=== PATIENT | male | born 1980 | race Caucasian/White ===

== ENCOUNTER 2016-12-01 11:00 | Emergency (ER) | payer BC ==
[2016-12-01 14:25] VITALS: BP 149/86
--- NOTE | 2016-12-01 14:36 | UC ---
Lower Extremity/Ankle HPI - HPI Summary HPI Summary: 36 yo male with pain/swelling redness of right foot x 4 days onset after skating no known trauma walking with limp no hx gout - History of Current Complaint Chief Complaint: UCLowerExtremity Stated Complaint: RIGHT FOOT PAIN Time Seen by Provider: 12/01/16 14:17 Hx Obtained From: Patient Onset/Duration: Gradual Onset, Lasting Days Severity Initially: Mild Severity Currently: Moderate Pain Intensity: 6 Pain Scale Used: 0-10 Numeric Aggravating Factor(s): Standing, Ambulation Alleviating Factor(s): Rest, Elevation Able to Bear Weight: Yes - Allergies/Home Medications Allergies/Adverse Reactions: Allergies Allergy/AdvReac Type Severity Reaction Status Date / Time avoids NSAIDs AdvReac Bleeding Uncoded 12/01/16 14:27 PMH/Surg Hx/FS Hx/Imm Hx Previously Healthy: Yes GI/ History Of: Reports: Ulcer - Surgical History Surgical History: Yes Surgery Procedure, Year, and Place: hernia repair 1991 - Family History Known Family History: Positive: Hypertension, Other - no Fhx of gout - Social History Alcohol Use: Daily Alcohol Amount: 2-4 beers daily Substance Use Type: None Smoking Status (MU): Never Smoked Tobacco Type: Smokeless Tobacco Household Exposure Type: Cigarettes - Immunization History Most Recent Influenza Vaccination: no Review of Systems Constitutional: Negative Skin: Negative Eyes: Negative ENT: Negative Respiratory: Negative Cardiovascular: Negative Gastrointestinal: Negative Genitourinary: Negative Motor: Negative Neurovascular: Negative Musculoskeletal: Arthralgia, Edema Neurological: Negative Psychological: Negative All Other Systems Reviewed And Are Negative: Yes Physical Exam Triage Information Reviewed: Yes Appearance: Well-Appearing, No Pain Distress, Well-Nourished Vital Signs: Initial Vital Signs Temp 99.6 F 12/01/16 14:16 Pulse 86 12/01/16 14:16 Resp 18 12/01/16 14:16 BP 149/86 12/01/16 14:16 Eyes: Positive: Conjunctiva Clear ENT: Positive: Hearing grossly normal. Negative: Nasal congestion, Nasal drainage, Trismus, Muffled/hoarse voice Neck: Positive: Supple, Nontender Respiratory: Positive: Lungs clear, Normal breath sounds, No respiratory distress Cardiovascular: Positive: RRR, No Murmur Abdomen Description: Positive: Nontender, No Organomegaly, Soft Musculoskeletal: Positive: Strength Intact, ROM Intact Neurological: Positive: Alert Psychological Exam: Normal Skin Exam: Other - see image Lower Extremity Course/Dx - Differential Dx/Diagnosis Provider Diagnoses: imflammatory arthritis (suspect gout) Discharge - Discharge Plan Condition: Stable Disposition: HOME Prescriptions: Naproxen [Naproxen 500 MG TABS] 500 mg PO BID PRN #30 tab PRN Reason: Pain Omeprazole CAP* [Prilosec CAP* 20 MG] 20 mg PO BEDTIME #14 cap. Prednisone [Deltasone] 40 mg PO DAILY #10 tab Patient Education Materials: Low Purine Diet (ED), Gout (ED) Referrals: Jens MURRAY,Alexa [Primary Care Provider] - 1 Week Additional Instructions: possible gout stop naproxen once you can bear wt pain free Images Feet (Multiple View): 1 - red/swollen 2 - red/swollen
--- NOTE | 2016-12-01 14:51 | RAD ---
INDICATION: Right foot pain and swelling COMPARISON: None TECHNIQUE: AP, lateral, and oblique views were obtained. FINDINGS: There are irregularities about the tarsonavicular with spurring and corticated ossific density adjacent to medial aspect of the tarsal navicular likely related to an old injury or perhaps an ossicle. There are no acute bony findings. The soft tissues are normal IMPRESSION: NO ACUTE BONY FINDINGS. PRESUMED ARCUATE NAVICULAR FRACTURE VERSUS OSSICLE.
== END 2016-12-01 15:01 | disposition home or self-care (01) ==
LOC: UCCORT 11:00
DX: M13.871 Other specified arthritis, right ankle and foot (principal); M77.51 Other enthesopathy of right foot and ankle; Z88.6 Allergy status to analgesic agent
CPT/HCPCS: 99212; G0463

== ENCOUNTER 2017-11-08 15:26 | Emergency (ER) | payer BC ==
[2017-11-08 15:57] VITALS: BP 158/107
--- NOTE | 2017-11-08 16:06 | UC ---
Elbow Pain - HPI Summary HPI Summary: Pt presents c/o gradual onset right elbow pain, swelling and mild erythema. Pt denies injury or trauma to the area. - History of Current Complaint Chief Complaint: UCUpperExtremity Stated Complaint: RIGHT ELBOW COMPLAINT Time Seen by Provider: 11/08/17 15:51 Hx Obtained From: Patient Onset/Duration: Days Severity Initially: Mild Severity Currently: Moderate Location Of Pain: Is Discrete @ - right elbow Character: Dull, Stiffness Aggravating Factor(s): Movement, Twisting Alleviating Factor(s): Rest Associated Signs And Symptoms: Positive: Swelling, Redness - Allergies/Home Medications Allergies/Adverse Reactions: Allergies Allergy/AdvReac Type Severity Reaction Status Date / Time avoids NSAIDs AdvReac Bleeding Uncoded 11/08/17 15:52 PMH/Surg Hx/FS Hx/Imm Hx Previously Healthy: Yes - Surgical History Surgical History: Yes Surgery Procedure, Year, and Place: hernia repair 1991. Back surgery 2013 - Family History Known Family History: Positive: Hypertension, Other - no Fhx of gout - Social History Occupation: Employed Full-time Lives: With Family Alcohol Use: Daily Alcohol Amount: 2-4 beers daily Substance Use Type: None Smoking Status (MU): Never Smoked Tobacco Type: Smokeless Tobacco Have You Smoked in the Last Year: No Household Exposure Type: Cigarettes - Immunization History Most Recent Influenza Vaccination: no Review of Systems Constitutional: Negative Skin: Other - erythema Eyes: Negative ENT: Negative Respiratory: Negative Cardiovascular: Negative Gastrointestinal: Negative Genitourinary: Negative Motor: Decreased ROM - right elbow Neurovascular: Negative Musculoskeletal: Decreased ROM - right elbow, Edema, Myalgia Neurological: Negative Psychological: Negative Is Patient Immunocompromised?: No All Other Systems Reviewed And Are Negative: Yes Physical Exam Triage Information Reviewed: Yes Appearance: Well-Appearing Vital Signs: Initial Vital Signs Temp 98.2 F 11/08/17 15:52 Pulse 91 11/08/17 15:52 Resp 16 11/08/17 15:52 BP 158/107 11/08/17 15:52 Pulse Ox 97 11/08/17 15:52 Eye Exam: Normal ENT Exam: Normal Dental Exam: Normal Neck exam: Normal Respiratory Exam: Normal Cardiovascular Exam: Normal Musculoskeletal Exam: Other Musculoskeletal: Positive: ROM Limited @ - right elbow, Edema @ - right elbow Neurological Exam: Normal Psychological Exam: Normal Skin Exam: Other - mild erythema, right elbow Elbow Pain Course/Dx - Course Course Of Treatment: I discussed with the pt katrina if symptoms worsen then he needs to seek medical attention immediately . - Differential Dx/Diagnosis Differential Diagnosis/HQI/PQRI: Bursitis, Other - septic joint Provider Diagnoses: bursitis Discharge - Discharge Plan Condition: Stable Disposition: HOME Prescriptions: Diclofenac 1% GEL (NF) [Voltaren 1% GEL (NF)] 1 applic TOPICAL Q8H PRN #1 tube PRN Reason: Pain Dicloxacillin CAP* [Dynapen CAP*] 500 mg PO Q6H #40 cap Patient Education Materials: Elbow Bursitis (ED) Referrals: Alexa Colindres MD [Primary Care Provider] - Freddie Snow MD [Medical Doctor] - If Needed
== END 2017-11-08 16:22 | disposition home or self-care (01) ==
LOC: UCCORT 15:26
DX: M70.31 Other bursitis of elbow, right elbow (principal); Y93.9 Activity, unspecified; Z88.6 Allergy status to analgesic agent; Z77.22 Contact with and (suspected) exposure to environmental tobacco smoke (acute) (chronic)
CPT/HCPCS: 99212; G0463